=== PATIENT | female | born 2000 | race Caucasian/White ===

== ENCOUNTER 2021-11-09 20:16 | Emergency (ER) | payer BC, MEDICAID ==
[~2021-11-09] VITALS: Ht 165.1 cm; Wt 57.2 kg
[2021-11-09 20:22] VITALS: BP_SYST 145
--- NOTE | 2021-11-09 20:28 | NUR ---
RECEIVED PT ACCOMPANIED BY HER FATHER C/O LT SHOULDER PAIN S/P FALL WHILE PLAYING SOFTBALL. PT DENIES KO. SHE STATED THAT SHE HEARD POPPED AND SHE HAD POSSIBLE DISLOCATION. PMH:DENIES PT AAOX4, NO SOB NOTED AND NOT IN ANY DISTRESS. PT ASSISTED TO BED5 AND AMBULATED WITH STEADY GAIT
--- NOTE | 2021-11-09 20:30 | NUR ---
Placed in room 1. Placed on youth nutritional monitor, blood pressure machine and pulse oximeter. To gown for exam. Side rails up.
--- NOTE | 2021-11-09 20:37 | NUR ---
ER at bedside examining patient.
[2021-11-09] MEDS ORDERED: PROPOFOL 200MG/ 20ML VIAL (DIPRIVAN) IV ONE (20:45)
--- NOTE | 2021-11-09 20:51 | NUR ---
DR. SARMIENTO AT BEDSIDE EXPLAINING PROCEDURE. ALL PATIENT'S QUESTIONS ANSWERED. CONSENT FOR TREATMENT SIGNED.
--- NOTE | 2021-11-09 21:06 | NUR ---
PLEASE SEE MODERATE SEDATION RECORD.
[2021-11-09] MEDS ORDERED: NAPR-1172 PO (21:40)
[2021-11-09 21:42] VITALS: BP_SYST 116
--- NOTE | 2021-11-09 21:42 | NUR ---
Patient given written and verbal discharge instructions and verbalizes understanding. ER MD discussed with patient the results and treatment provided. Patient in stable condition. ID arm band removed. IV catheter removed intact and dressing applied, no active bleeding. Rx of NAPROXEN given. Patient educated on pain management and to follow up with PMD. Pain Scale 0/10 Opportunity for questions provided and answered. Medication side effect fact sheet provided.
== END 2021-11-09 21:42 | disposition home or self-care (01) ==
LOC: SED 20:16
DX: S43.015A Anterior dislocation of left humerus, initial encounter (principal); M25.512 Pain in left shoulder; F12.90 Cannabis use, unspecified, uncomplicated; Z79.899 Other long term (current) drug therapy; W21.03XA Struck by baseball, initial encounter; Y93.64 Activity, baseball; Y92.89 Other specified places as the place of occurrence of the external cause; Y99.8 Other external cause status
CPT/HCPCS: 99285; 23650; 73020; 99152; J2704; 96374